=== PATIENT | female | born 1945 | race Caucasian/White ===

== ENCOUNTER → 2016-04-19 | Day surgery (SDC) | payer BC ==
--- NOTE | 2016-04-15 17:55 | MH ---
cc: SUSANA ADAMES DATE OF ADMISSION 04/19/2016 ADMISSION DIAGNOSIS A medial meniscus tear of the right knee, chondromalacia right knee, effusion right knee, Sidhu's cyst right knee. pain right knee. HISTORY OF THE PRESENT ILLNESS The patient is a 70-year-old white female who has experienced pain of her right knee of at least 10 months duration. She had initiated an exercise program which included walking up and down stairs at work and during this interval of time she began to note soreness about the anterior aspect of her right knee for which she subsequently discontinued the exercise program and began wearing an elastic knee support while taking Advil for pain management. Initially she thought there was some trend of improvement and then she later began to note recurrent pain secondary to kneeling type stress about the knee joint. Her discomfort had persisted for which she subsequently was seen by the undersigned physician in December of this past year. At that time a review of x-ray studies of the right knee were without evidence of any appreciable degenerative change. The patient was diagnosed as having tendonitis for which she did receive a local steroid injection and was thereafter followed on an outpatient basis. Initially she thought there was a trend of improvement and continued to take Advil on a p.r.n. basis while being followed thereafter. She returned to the office in March of this year reporting that she was again noting a gradual recurrence of pain somewhat more pronounced about the medial aspect of her right knee that was influenced by weightbearing activities. A recommendation was thus made to proceed with an MRI scan, the results of which identified a large horizontal tear involving the posterior horn of the medial meniscus with extension into the body of the meniscal structure associated with chondromalacia throughout the medial femoral condyle and moderate joint effusion. A small Sidhu's cyst was also identified. The findings of the scan were reviewed and treatment options discussed thereafter. The pros and cons of continuing with conservative management versus operative intervention that would involve arthroscopic surgery was outlined. Emphasis was made regarding the fact that the decision to proceed with surgery would be left entirely to the patient's discretion. She felt that her symptoms had progressed to a point in time where she was ready to proceed with such treatment and in compliance with her wishes she is currently being admitted in order that the above be accomplished. PAST MEDICAL HISTORY Her past medical history, hospitalizations and surgeries have included: 1. Several operative procedures of her left eye that have involved a detached retina and subsequent corneal transplant. 2. She also has undergone treatment for scleral buckling of the left eye. 3. Additional procedures include colonoscopy. The patient's medical illnesses include: 1. Elevated cholesterol for which he takes Crestor 10 mg daily. 2. She also takes Prozac 10 mg daily for stress disorder. 3. Trazodone 50 mg at bedtime for sleep. ALLERGIES She denies any known drug allergies. REVIEW OF SYSTEMS She does wear glasses. No headache, seizure or syncope. Sinus congestion secondary to environmental irritants. No epistaxis. Auditory acuity intact. No tinnitus. No bleeding gums or dysphagia. Denies cough, shortness of breath, upper respiratory infection, pneumonia or tuberculosis. No angina or heart disease. She has had a history of rheumatic heart disease in the past. Appetite is good. Bowel movements are regular. No hepatitis, gallbladder disease, ulcers or hemorrhoids. No urinary tract infection. No kidney stones. No previous fractures. She has undergone previous psychiatric intervention for . Her remaining review of systems is unremarkable and noncontributory. FAMILY HISTORY The patient has been for 50 years. Her is 70 years of age. He is a diabetic. She has one son and three daughters all indicated to be in good health. FAMILY HISTORY Positive for lung, colon and breast cancer. SOCIAL HISTORY The patient completed a master's degree in education. 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 She denies active use of tobacco for the past 30 years but had been a two pack per day user for almost 20 years prior to that time. Ethanol consumption on rare occasion. PHYSICAL EXAMINATION VITAL SIGNS: Height 5 feet, 1-1/2 inches, weight 175 pounds. GENERAL: An alert, oriented responsive 70-year-old white female who sits quietly upon examination table with no obvious distress. HEENT: Head, ears, eyes, nose and throat, pupils are asymmetrical bilaterally. Extraocular movements full. External nares clear. External auditory canals clear. Dental intact. Mucous membranes pink and moist. Pharynx clear. NECK: Supple. Active range of motion without appreciable pain. Carotid pulse bilaterally. Trachea midline. Thyroid without enlargement. LUNGS: Clear to auscultation and percussion. No CVA tenderness. No discomfort throughout the dorsal lumbar spine. HEART: Regular rhythm. No murmur or gallop. ABDOMEN: Soft, nontender. Bowel sounds present. PELVIC: Per primary care physician. EXTREMITIES: Right knee no significant swelling or effusion. There is medial joint line tenderness without palpable deformity. Apprehension and compression sign are negative. There is guarded mobility towards the extreme of flexion without significant crepitation. No collateral ligamentous laxity. Chio test and drawer sign negative. Pivot shift and Joo sign positive for medial compartment pain. Straight-leg raising unremarkable at 80 degrees. Independent gait. NEUROLOGICAL: Cranial nerves II-XII grossly intact excluding diminished visual acuity of the left eye. IMPRESSION Medial meniscus tear right knee, chondromalacia right knee, effusion right knee, Sidhu's cyst right knee, pain right knee. PLAN Arthroscopic surgery and possible arthrotomy right knee. The nature of the planned surgical procedure, the potential complications and risks associated, the expectations of surgery and the consent form were thoroughly reviewed with the patient prior to her admission to the hospital. Mone has indicated her full understanding regarding all of the above and given consent to proceed with treatment as outlined. Medical evaluation and clearance for surgery will be completed by her primary care physician Dr. Devan Eduardo. MD ELISABETH Javier/KK /5:17 PM /5:31 PM
[~2016-04-19] VITALS: Ht 156.2 cm; Wt 78.5 kg
[~2016-04-19] MED LIST: *morphine SULFATE 8 MG/ML PERIprocedure ONLY ONE; ACETAMINOPHEN/HYDROcodone 325 MG/5 MG TAB PO PRN; ALPR.5 PO; CHLORHEXIDINE GLUCONATE 4% SOLN 120 ML BTL TOP SCH; DEXAMETHASONE SOD PHOS 4 MG/ML VIAL ONE; DO NOT ADM ANY ANTICOAGULANT DRUGS XX PRN; FAMOTIDINE 20 MG/2 ML VIAL ONE; INSULIN HUMAN REGULAR 1,000 UNITS/10 ML VIAL SQ PRN; KETOROLAC TROMETHAMINE 60 MG/2 ML (IM) VIAL IM ONE; LACTATED RINGER'S 1000 ML INJ 1,000 ML IV ONE; LACTATED RINGER'S 1000 ML IV SCH; LIDOCAINE HCL 2% 20 ML VIAL INFIL ONE; LIDOCAINE HCL 2% PF SOLN 10 ML VIAL ONE; METOPROLOL TARTRATE 25 MG TAB PO PRN; MIDAZOLAM HCL 2 MG/2 ML VIAL ONE; MORPHINE SULFATE 10 MG/ML INJ IM PRN; ONDANSETRON HCL 4 MG/2 ML VIAL IV PUSH ONE; PHENERGAN 25 MG IM PRN; POVIDONE IODINE 7.5% SCRUB 118 ML BOTTLE TOP SCH; PROPOFOL 200 MG/20 ML AMP IV ONE; PROZ20CA11 PO; ROSU10 PO; SODIUM CHLORID 0.9% 500 ML IV SCH; TRAZ50TA12 PO; TRIAMCINOLONE ACETONIDE 40 MG/ML VIAL I-SYNOVIAL ONE; ceFAZolin 2 GM PREMIX 50 ML IV SCH; ePHEDrine/NS 25 MG/5 ML SYR IV ONE
[2016-04-19 06:00] VITALS: BP 142/83; PULSE 66; RESP 16; TEMP 97.9; O2SAT 98
[2016-04-19 11:25] VITALS: BP 164/75; PULSE 71; RESP 16; TEMP 97.3; O2SAT 99
--- NOTE | 2016-04-19 19:09 | EKG ---
Date Performed: 04/19/2016 Time Performed: 07:43:39 PTAGE: 70 years EKG: Sinus rhythm NORMAL ECG NO PREVIOUS TRACING DOCTOR: Steven Yadav Interpretating Date/Time 04/19/2016 19:07:39
--- NOTE | 2016-04-23 20:44 | MP ---
cc: SUSANA EVANS DATE OF SURGERY 04/19/16 PREOPERATIVE DIAGNOSIS 1. Medial meniscus tear of the right knee 2. Chondromalacia right knee 3. Effusion right knee, 4. Sidhu's cyst right knee 5. Pain right knee. POSTOPERATIVE DIAGNOSIS 1. Medial meniscus tear of the right knee 2. Chondromalacia right knee 3. Effusion right knee, 4. Sidhu's cyst right knee 5. Pain right knee. 6. Chondromalacia patellae right knee 7. Synovial plica right knee PROCEDURE 1. Partial medial meniscectomy right knee 2. Chondroplasty medial compartment 3. Chondroplasty of patellofemoral joint 4. Resection of synovial plica right knee SURGEON Rachel Evans MD ANESTHESIA General by LMA. PROCEDURE IN DETAIL Following induction of satisfactory general anesthesia by LMA insertion as completed per the Department of Anesthesia, examination of the right knee revealed a satisfactory range of motion with no obvious ligamentous instability. The extremity proper was positioned into the surgical coordinator knee parekh prepped with Betadine solution and draped into a sterile field in the routine manner. Prior to initiation of the actual procedure, the standard time-out protocol was completed, all parameters were appropriately addressed and confirmed by operating room personnel. Arthroscopic instrumentation was introduced through stab wound utilizing cannula with sharp and blunt trocar, the inflow irrigation by way of the medial suprapatellar portal, the arthroscope through a lateral parapatellar portal, a probe through a medial parapatellar portal. Examination of suprapatellar pouch revealed generalized reactive synovitis with a prominent synovial plica throughout the medial aspect of the suprapatellar region. Moderate degenerative irregularity of the patellofemoral joint consistent with localized chondromalacia was appreciated. Within the medial compartment, a significant degenerative tear involving the body and posterior horn of the medial meniscus was noted with associated degenerative involvement throughout the entire medial compartment including femoral condyle and tibial plateau. Proliferative synovium extended into the intercondylar region. The anterior cruciate ligament was identified and noted to be intact. Examination of the lateral compartment was less impressive with satisfactory preservation of the lateral meniscus and preservation of the articular surfaces involving the femoral condyle and tibial plateau. Attention was redirected to the medial compartment. Utilizing a 3.8 aggressive resector, a partial medial meniscectomy was accomplished as well as a generalized debridement and chondroplasty throughout the medial compartment involving both femoral condyle and tibial plateau. The shaver was thereafter oriented into the patellofemoral joint where a secondary debridement and chondroplasty was accomplished and, thereafter, the previously identified synovial plica was resected without difficulty. Upon completion of same, the joint space was thoroughly lavaged and suctioned dry, An intra-articular Kenalog lidocaine injection completed, portal sites reapproximated with Steri-Strips over which Xeroform gauze and a bulky dry sterile dressing placed. Anesthesia was discontinued and the patient thus transferred to a hospital stretcher and returned to the recovery room in satisfactory condition having tolerated her operative procedure well. Estimated blood loss was less than 10 mL. MD ELISABETH Javier/ /10:01 AM /7:33 PM
== END | disposition home or self-care (01) ==
LOC: HSDC 05:53
PROVIDERS: ATTEND Orthopaedic Surgery
DX: S83.241A Other tear of medial meniscus, current injury, right knee, initial encounter (principal); M94.261 Chondromalacia, right knee; E78.00 Pure hypercholesterolemia, unspecified; Z01.810 Encounter for preprocedural cardiovascular examination
CPT/HCPCS: 01400; 29881; 93005; J0690; J1100; J1885; J2250; J2270; J2405; J3010; J3301; J7120